=== PATIENT | male | born 1985 | race Caucasian/White ===

== ENCOUNTER 2017-01-12 12:58 | Emergency (ER) | payer SELFPAY ==
[~2017-01-12] VITALS: Ht 188 cm; Wt 120.2 kg
[2017-01-12 12:58] VITALS: BP 139/95
[2017-01-12] MEDS ORDERED: LIDOCAINE 2% 20 ML MDV ONE (13:08)
[2017-01-12] MEDS ORDERED: TDAP [DIPH/PERTUSSIS/TET] 0.5 ML VIAL IM ONE ×2 (13:09→13:30)
--- NOTE | 2017-01-12 13:45 | NUR ---
Bandaged wound on hand w/non-stick dressing and roller gauze. Gave pt d/c instructions, verbalized understanding.
[2017-01-12] MEDS ORDERED: LIDOCAINE 2% 20 ML MDV TP ONE (15:30)
== END 2017-01-12 13:48 | disposition home or self-care (01) ==
LOC: ER 12:59
DX: S61.217A Laceration without foreign body of left little finger without damage to nail, initial encounter (principal); Z88.2 Allergy status to sulfonamides; W25.XXXA Contact with sharp glass, initial encounter; Y93.89 Activity, other specified; Y92.89 Other specified places as the place of occurrence of the external cause; Y99.8 Other external cause status
CPT/HCPCS: 90715; A4606; A6402; J3490; Z7610

== ENCOUNTER 2017-01-20 12:18 | Emergency (ER) | payer OTHER ==
[~2017-01-20] VITALS: Ht 188 cm; Wt 120.2 kg
[2017-01-20 12:18] VITALS: BP 148/81
== END 2017-01-20 13:17 | disposition home or self-care (01) ==
LOC: ER 12:20
DX: S61.217D Laceration without foreign body of left little finger without damage to nail, subsequent encounter (principal); J45.909 Unspecified asthma, uncomplicated; Z88.2 Allergy status to sulfonamides; X58.XXXD Exposure to other specified factors, subsequent encounter
CPT/HCPCS: 99281; A4606; Z7610; Z7502

== ENCOUNTER 2017-07-11 12:56 | Emergency (ER) | payer OTHER ==
[~2017-07-11] VITALS: Ht 190.5 cm; Wt 111.1 kg
--- NOTE | 2017-07-11 13:50 | NUR ---
FEELING ANXIOUS S/P HEAVY ALCOHOL DRINKING THIS PAST WEEKEND. SEEN BY PA FOR EVAL. VSS. IV ACCESS STARTED. BLOOD DRAWN FOR LABS. MEDICATED ORDERED. SAFETY AND COMFORT MEASURES PROVIDED. WILL MONITOR.
[2017-07-11 13:53] LABS: BASOPHILS % (AUTO) 0.5 % (0.0-2.0); EOSINOPHILS % (AUTO) 0.5 % (0.0-6.0); HEMATOCRIT 50 % (39-51); HEMOGLOBIN 17.1 g/dL (13.5-17.5); LYMPHOCYTES % (AUTO) 19.8 % (20.0-44.0); MEAN CORPUSCULAR HGB CONC 35 g/dl (31.0-36.0); MEAN CORPUSCULAR VOLUME 90 fL (80-96); MONOCYTES # (AUTO) 0.4 /CMM (0.1-1.30); MONOCYTES % (AUTO) 7.3 % (2.0-12.0); NEUTROPHILS # (AUTO) 3.8 /CMM (1.8-8.9); NEUTROPHILS % (AUTO) 71.9 % (43.0-81.0); PLATELET COUNT (AUTO) 214 /CMM (150-450); RDW COEFFICIENT OF VARIATION 11.9 (11.5-15.0); RED BLOOD CELL COUNT(AUTO) 5.49 MIL/uL (4.5-6.0); WHITE BLOOD COUNT (AUTO) 5.2 K/uL (4.3-11.0)
[2017-07-11] MEDS ORDERED: LORAZEPAM INJ 2 MG/ML VIAL IV ONE (14:00)
[2017-07-11] MEDS ORDERED: IV NS 0.9% 1,000 ML BAG IV ONE (14:00)
[2017-07-11] MEDS ORDERED: ONDANSETRON HCL/PF 4 MG/2 ML VIAL IV ONE (14:00)
[2017-07-11 14:01] LABS: CALCIUM, SERUM 8.9 mg/dL (8.5-10.1); CREATININE 0.9 mg/dL (0.6-1.3); POTASSIUM 3.8 mmol/L (3.5-5.1)
[2017-07-11] MEDS ORDERED: ONDANSETRON HCL/PF 4 MG/2 ML VIAL ONE (14:03)
[2017-07-11] MEDS ORDERED: LORAZEPAM INJ 2 MG/ML VIAL ONE (14:04)
[2017-07-11 14:07] LABS: ALBUMIN 3.8 g/dL (3.4-5.0); BILIRUBIN,TOTAL 1.3 mg/dL (0.2-1.0); TOTAL PROTEIN, SERUM 7.8 g/dL (6.4-8.2)
--- NOTE | 2017-07-11 15:00 | NUR ---
IV removed. Catheter intact and site benign. Pressure and 4x4 applied to site. No bleeding noted.
--- NOTE | 2017-07-11 15:04 | NUR ---
Patient discharged to home in stable condition. Written and verbal after care instructions given. Patient verbalizes understanding of instruction.
[2017-07-11 15:08] VITALS: BP 139/65
== END 2017-07-11 15:09 | disposition home or self-care (01) ==
LOC: ER 12:57
DX: F41.9 Anxiety disorder, unspecified (principal); J45.909 Unspecified asthma, uncomplicated; Z88.2 Allergy status to sulfonamides
CPT/HCPCS: 36415; 80053-TC; 83690-TC; 85025-TC; A4606; J2060; J2405; J7030; Z7610

== ENCOUNTER 2017-08-01 19:16 | Emergency (ER) | payer OTHER ==
[~2017-08-01] VITALS: Ht 188 cm; Wt 113.4 kg
--- NOTE | 2017-08-01 20:15 | NUR ---
PATIENT TO ED DT CUT RT THUMB WHILE IPENING DOG CAN"; BLEEDING CONTAINED; DISTAL CMS INTACT. VSS
[2017-08-01] MEDS ORDERED: LIDOCAINE 2% 50 ML MDV IJ ONE (20:19)
[2017-08-01] MEDS ORDERED: IBUPROFEN 600 MG TABLET PO ONE ×2 (20:26→20:30)
[2017-08-01] MEDS ORDERED: LIDOCAINE 1% INJ 50 ML MDV IJ ONE (20:30)
[2017-08-01 20:43] VITALS: BP 118/6
--- NOTE | 2017-08-01 20:44 | NUR ---
Patient discharged to home in stable condition. Written and verbal after care instructions given. Patient verbalizes understanding of instruction.
== END 2017-08-01 20:45 | disposition home or self-care (01) ==
LOC: ER 19:20
DX: S61.011A Laceration without foreign body of right thumb without damage to nail, initial encounter (principal); J45.909 Unspecified asthma, uncomplicated; Z88.2 Allergy status to sulfonamides; W27.4XXA Contact with kitchen utensil, initial encounter; Y93.89 Activity, other specified; Y92.89 Other specified places as the place of occurrence of the external cause; Y99.8 Other external cause status
CPT/HCPCS: 12001; 99283; A4606; J3490; Z7610